=== PATIENT | male | born 1985 | race Caucasian/White ===

== ENCOUNTER 2020-10-18 18:26 | Inpatient (IN) | payer OTHER ==
--- NOTE | 2020-10-18 19:01 | RAD ---
Right ankle 2 views: 10/18/2020 COMPARISON: None HISTORY: Running, fall, ankle popped FINDINGS: There is a comminuted displaced multifocal distal right fibular/lateral malleolus fracture. There is a comminuted displaced obliquely oriented fracture of the distal right tibia involving the region of the posterior malleolus with intra-articular extension. Distal tibial fracture fragment is displaced laterally by 1.1 cm. No evidence for dislocation. IMPRESSION: Extensive fracture deformities of the distal tibia and fibula. Orthopedic consultation [facility].
[2020-10-18] MEDS ORDERED: Ondansetron PF 4 MG/2 ML Vial ONE (19:14)
[2020-10-18] MEDS ORDERED: Morphine 4 MG/ML VIAL ONE (19:14)
[2020-10-18 21:01] LABS: #Lymphocytes 0.9 thou/uL (1.20-3.40); #Monocytes 0.4 thou/uL (0.11-0.59); #Neutrophils 10.2 thou/uL (1.40-6.50); %Basophils 0.2 % (0.0-1.0); %Eosinophils 0.1 % (0.0-10.0); %Lymphocytes 7.5 % (21.0-51.0); %Monocytes 3.8 % (0.0-10.0); %Neutrophils 88.4 % (42.0-75.0); Hemoglobin 14.2 g/dL (14.0-18.0); Mean Corpuscular HGB CONC 33.6 g/dL (32.0-36.0); Mean Corpuscular Hemoglobin 31.4 pg (27.0-31.0); Mean Corpuscular Volume 93.5 fL (78.0-98.0); Mean Platelet Volume 8.1 fL (7.4-10.4); Platelet Count 171 thou/uL (130-400); RBC Distribution Width 12.1 % (11.5-14.5); Red Blood Cell (RBC) Count 4.53 mill/uL (4.70-6.10); White Blood Cell (WBC) Count 11.6 thou/uL (4.8-10.8)
[2020-10-18 21:10] LABS: INR-International Normal Ratio 1.1
[2020-10-18 21:23] LABS: ALT (SGPT) 40 U/L (8-55); AST (SGOT) 24 U/L (5-34); Albumin 4.5 g/dL (3.5-5.0); Alkaline Phosphatase 43 U/L (40-110); Anion Gap 15 mmol/L (10-20); BUN (Urea Nitrogen) 10 mg/dL (8.9-20.6); Bilirubin, Total 0.6 mg/dL (0.2-1.2); Calc. Creatinine Clearance 0 mL/min (70-130); Carbon Dioxide 25 mmol/L (22-29); Chloride 104 mmol/L (98-107); Estimated GFR-MDRD 90; Globulin 3.1 g/dL (2.4-3.5); Glucose 95 mg/dL (70-105); Potassium 4.4 mmol/L (3.5-5.1); Protein, Total 7.6 g/dL (6.0-8.3); Sodium 140 mmol/L (136-145)
--- NOTE | 2020-10-18 21:41 | RAD ---
RADIOGRAPH CHEST 1 VIEW: DATE: 10/18/2020 HISTORY: 35-year-old male for preoperative clearance FINDINGS: There are no airspace densities, pulmonary edema, pneumothorax, or cardiomegaly. The lateral costophr enic angles are sharp. IMPRESSION: No acute cardiopulmonary findings.
--- NOTE | 2020-10-18 22:35 | HP ---
This is Shayne Scherer PA-C dictating a report for Bharath Miller MD. REQUESTING PHYSICIAN: Theodore Barajas MD CONSULTATIONS: Orthopedics, Dr. Cullen. HISTORY OF PRESENT ILLNESS: The patient is a 35-year-old man, who was running in a field, chasing his son on a motorcycle when he stepped in a hole, felt a pop and had immediate pain and deformity to his right ankle. The patient was brought to the emergency department, where he underwent evaluation and examination and was noted to have distal tibia and fibular fractures at which time we were asked to evaluate the patient for admission and obtain Orthopedic consultation. The patient denied any loss of consciousness or syncopal episode surrounding his fall. He did not hit his head. ALLERGIES: NONE. CURRENT MEDICATIONS: None. PAST MEDICAL HISTORY: None. PAST SURGICAL HISTORY: Left shoulder surgery. SOCIAL HISTORY: The patient denies tobacco or drug use. He drinks occasionally once a week. 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 REVIEW OF SYSTEMS: A 10-point review of systems is negative as otherwise stated. PHYSICAL EXAMINATION: VITAL SIGNS: Blood pressure 122/70, heart rate 60, respirations 16, oxygen saturation 99% on room air, and temperature is 98.2. GENERAL: The patient is resting comfortably in bed. He is awake, alert, and oriented x3. Oh Coma Scale is 15. HEENT: Head is normocephalic and atraumatic. Eyes, extraocular motion intact. PERRLA bilaterally. Ears are atraumatic without discharge. Nose is atraumatic without discharge. Oropharynx is clear. NECK: Nontender. Trachea is midline with no JVD. CHEST: Clear to auscultation with good inspiratory and expiratory effort. HEART: Regular rate and rhythm. ABDOMEN: Soft, flat, nontender with active bowel sounds. PELVIS: Stable. EXTREMITIES: Neurovascularly intact x4. Right lower extremity is immobilized in a well-padded splint. BACK: Atraumatic and nontender. LABORATORY FINDINGS: White blood cell count 11.6, hemoglobin 14.2, hematocrit 42.4, platelets 171. Sodium 140, potassium 4.4, chloride 104, CO2 of 25, BUN 10, creatinine 0.94, glucose 95, INR 1.1. Radiographs, views of the right ankle showed an extensive fracture deformities of the distal tibia and fibula. AP chest x-ray shows no acute cardiopulmonary fracture. ASSESSMENT: 1. Status post ground level fall. 2. Right distal tibia and fibular fracture, closed. 3. Acute pain secondary to above. PLAN: Plan will be to admit the patient to the surgical floor. He will be made n.p.o. after midnight. We will do pain control, pulmonary toilet, gastritis, and mechanical VTE prophylaxis, and he will undergo operative intervention by Dr. Cullen tomorrow. We will have Physical Therapy work with him to crutch training and likely be able to discharge the patient home depending on his surgical time. The evaluation, examination, laboratory, and radiographic findings were discussed with Dr. Miller prior to this dictation. Job ID: [id number]
[2020-10-18] MEDS ORDERED: traMADol HCl 50 MG TAB PO PRN (22:51)
[2020-10-18] MEDS ORDERED: Dextrose 5% in Water 1,000 ML IV PRN (22:51)
[2020-10-18] MEDS ORDERED: Ondansetron PF 4 MG/2 ML Vial IVP PRN (22:51)
[2020-10-18] MEDS ORDERED: Morphine 2 MG/ML VIAL SLOW IVP PRN (22:51)
[2020-10-18] MEDS ORDERED: Promethazine HCl 25 MG/ML VIAL IM PRN (22:51)
[2020-10-18] MEDS ORDERED: Ondansetron ODT 4 MG TAB PO PRN (22:51)
[2020-10-18] MEDS ORDERED: Dextrose 50% Abboject 50 ML SYRINGE SLOW IVP PRN (22:51)
[2020-10-18] MEDS ORDERED: Famotidine 20 MG TAB PO SCH (23:15)
[2020-10-18] MEDS ORDERED: Ibuprofen 800 MG TAB PO SCH (23:15)
[2020-10-18] MEDS: Acetaminophen 500 MG TAB PO SCH (23:23)
[2020-10-18] MEDS: Cyclobenzaprine 10 MG TAB PO PRN (23:24)
[2020-10-18] MEDS: Sodium Chloride 0.9% 1,000 ML IV SCH (23:24)
[2020-10-19 00:47] VITALS: BMI 35.4
[2020-10-19] MEDS: traMADol HCl 50 MG TAB PO PRN ×2 (01:32→07:16)
[2020-10-19 03:49] LABS: SARS-CoV-2 MS2 Positive; SARS-CoV-2 N Gene Negative; SARS-CoV-2 S Gene Negative; SARS-CoV-2 by NAA Not Detected (NotDetected); SARS-CoV-2 orf1ab Negative
[2020-10-19] MEDS: Ibuprofen 800 MG TAB PO SCH ×2 (05:34→15:37)
[2020-10-19] MEDS: Acetaminophen 500 MG TAB PO SCH ×2 (05:34→13:35)
[2020-10-19] MEDS: Cyclobenzaprine 10 MG TAB PO PRN (05:34)
[2020-10-19 05:48] LABS: #Eosinphils 0.1 thou/uL (0.0-0.7); #Lymphocytes 1.8 thou/uL (1.20-3.40); #Monocytes 0.5 thou/uL (0.11-0.59); #Neutrophils 4.1 thou/uL (1.40-6.50); %Basophils 0.4 % (0.0-1.0); %Eosinophils 0.8 % (0.0-10.0); %Lymphocytes 28.1 % (21.0-51.0); %Monocytes 8.3 % (0.0-10.0); %Neutrophils 62.4 % (42.0-75.0); Hemoglobin 13.6 g/dL (14.0-18.0); Mean Corpuscular HGB CONC 33.8 g/dL (32.0-36.0); Mean Corpuscular Hemoglobin 31.5 pg (27.0-31.0); Mean Corpuscular Volume 93.1 fL (78.0-98.0); Mean Platelet Volume 7.6 fL (7.4-10.4); Platelet Count 180 thou/uL (130-400); RBC Distribution Width 12.1 % (11.5-14.5); White Blood Cell (WBC) Count 6.5 thou/uL (4.8-10.8)
[2020-10-19 06:08] LABS: Anion Gap 13 mmol/L (10-20); BUN (Urea Nitrogen) 11 mg/dL (8.9-20.6); Calc. Creatinine Clearance 194 mL/min (70-130); Calcium 8.8 mg/dL (7.8-10.44); Carbon Dioxide 26 mmol/L (22-29); Chloride 106 mmol/L (98-107); Estimated GFR-MDRD Greater than 90; Glucose 96 mg/dL (70-105); Sodium 141 mmol/L (136-145)
[2020-10-19] MEDS: Sodium Chloride 0.9% 1,000 ML IV SCH (08:31)
[2020-10-19] MEDS ORDERED: Famotidine 20 MG TAB PO SCH (09:00)
--- NOTE | 2020-10-19 09:07 | CON ---
DATE OF CONSULTATION: CHIEF COMPLAINT: Right ankle pain. HISTORY OF PRESENT ILLNESS: Mr. Lomeli is a 35-year-old male, who was running across a pasture yesterday. He rolled his ankle and fell. He had pain and popping. He was unable to bear weight. He had deformity of his ankle. He was taken to the emergency department. X-rays of this demonstrated a distal tibia fracture as well as a lateral malleolus fracture. He has an unstable fracture. He has been splinted. He has been admitted to the hospital. He is resting comfortably. He did sleep some last night. He has been hemodynamically stable. ALLERGIES: NONE. MEDICATIONS: None. PAST MEDICAL HISTORY: Negative. PAST SURGICAL HISTORY: Previous left shoulder labral surgery approximately three months ago. SOCIAL HISTORY: The patient denies tobacco, alcohol, or drug use. 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 REVIEW OF SYSTEMS: Positive for right ankle pain. Otherwise, negative 10-point review of systems. IMAGES: X-rays of the right ankle demonstrate a distal tibia fracture with displacement. It does appear to be extra-articular. There is approximately only 1-2 cm of bone distal to the fracture. He has a displaced comminuted distal fibular fracture also. PHYSICAL EXAMINATION: VITAL SIGNS: Temperature is 98.2, pulse is 65, respiratory rate 16, oxygen saturation 98%, blood pressure is 128/75. GENERAL: He is alert, sitting upright, in no apparent distress. RESPIRATORY: Breathing comfortably. ABDOMEN: Soft, nontender, and nondistended. MUSCULOSKELETAL: The patient's right lower extremity is splinted. He is able to gently flex and extend the toes. He has 2-second capillary refill. The splint was not removed. IMPRESSION: Right distal tibia fracture and fibular fracture. PLAN: The patient will need to go to the surgery today. We will plan for open reduction and internal fixation of the distal tibia and fibula. He will likely be able to go back home today. He will be nonweightbearing for 6-8 weeks. He will need to strictly elevate the leg. He will have pain control. He will have antibiotics on-call to the operating room. Risks have been reviewed with him and he wants to proceed. Job ID: [id number]
[2020-10-19] MEDS ORDERED: Dexamethasone 4 mg/ml Vial ONE (09:23)
[2020-10-19] MEDS ORDERED: Midazolam HCl 2 mg/2 ml Vial ONE (09:23)
[2020-10-19] MEDS ORDERED: Fentanyl 100 MCG/2 ML VIAL ONE (09:23)
[2020-10-19] MEDS ORDERED: Lidocaine 1% (PF) 30 ML VIAL ONE (09:23)
[2020-10-19] MEDS ORDERED: CEFAZOLIN 2 GM in Premix Bag 1 BAG IVPB SCH ×2 (10:00→16:00)
[2020-10-19] MEDS ORDERED: Promethazine HCl 25 MG/ML VIAL SLOW IVP PRN (10:52)
[2020-10-19] MEDS ORDERED: Promethazine HCl 25 MG/ML VIAL IM PRN (10:52)
[2020-10-19] MEDS ORDERED: Ondansetron HCl/PF 4 MG/2 ML Vial IVP PRN (10:52)
--- NOTE | 2020-10-19 12:53 | OP ---
DATE OF PROCEDURE: 10/19/2020 PROCEDURE PERFORMED: Open reduction and internal fixation of right distal tibia and fibular fracture. PREOPERATIVE DIAGNOSIS: Displaced fracture of right distal tibial plafond and fibular fracture. POSTOPERATIVE DIAGNOSIS: Displaced fracture of right distal tibial plafond and fibular fracture. COMPLICATIONS: None. ESTIMATED BLOOD LOSS: 100 mL. MARINE CONSULTANT: Iam Tabor PA-C The pediatric physician assistant surgeon was responsible for positioning the patient, preparing the injured extremity, applying the tourniquet, and assisting in preparation for surgery. The pediatric physician assistant was instrumental in reducing the injured limb by applying traction and reduction maneuvers as well as holding retractors and reduction tools. The pediatric physician assistant also was instrumental in assisting in exposure throughout the operation using appropriate retractors. The pediatric physician assistant participated in closure of the operative site as well as dressing application and splint application. IMPLANT: Synthes medial distal tibial plate with multiple locking and nonlocking screws and a one-third tubular plate with nonlocking screws were utilized. INDICATIONS: Mr. Lomeli is a 35-year-old male, who has fallen and fractured his right distal tibia and fibula. He has been indicated for open reduction and internal fixation to restore anatomic alignment and promote healing and prevent complications. Risks have been reviewed in detail. He has elected to proceed with the operation. DESCRIPTION OF PROCEDURE: Mr. Lomeli was identified in the preoperative holding area. His correct extremity was marked. He was carried to the operating room. He was positioned supine. General anesthesia was induced. A multidisciplinary time-out was performed. The right lower extremity was prepped and draped in sterile fashion. We began the procedure with a medial approach to the tibia. We dissected down through the subcutaneous tissues to the fascia. We exposed the underlying medial malleolus and medial tibial fracture lines. We irrigated and cleared soft tissue from the bony injury. We then pulled traction and reduced the bone. We applied a reduction clamp at this point holding the fracture well reduced. Next, we slid the 8-hole distal tibial medial plate along the medial cortex. This was positioned appropriately on the bone. We placed the screw proximally, which was a nonlocking screw followed by multiple locking distal screws. We took x-ray images in orthogonal planes. At this point, we continued to place the screws until we had rigid fixation. We took x-ray images again. We thoroughly irrigated these wounds and closed in layers. Next, we moved to the lateral aspect of the leg. We made incision over the distal fibula. We dissected down to the bony level. We cleared the bony fracture, which was comminuted and displaced. We reduced the fracture using reduction clamp. We then placed a lag screw across the fracture line itself. This was followed by placement of a 10-hole 1/3 tubular plate. Multiple screws were placed proximal and distal to the fracture. We spanned the long posterior fracture comminution. Again, we took x-ray images. We were happy with hardware placement and reduction. We thoroughly irrigated with copious lavage. We then closed in layers. A sterile dressing was applied. The patient was taken to the recovery room in good condition. Job ID: [id number]
--- NOTE | 2020-10-19 17:03 | RAD ---
2 VIEWS RIGHT ANKLE: Date: 10/19/2020 PROVIDED CLINICAL HISTORY: Open reduction and internal fixation. FINDINGS: Medial side plate and screw fixation of previously described distal tibial pilon fracture with result ant improved alignment. Lateral side plate and screw fixation with interfragmentary screw involving p reviously described distal fibular fracture. IMPRESSION: As above. POS: [facility]
[2020-10-19 17:29] VITALS: BP 116/70; TEMP 98.2
== END 2020-10-19 17:35 | disposition home or self-care (01) | DRG 494 ==
LOC: ERS 18:26 → SURG A 19:17
PROVIDERS: ADMIT Specialist; ATTEND Specialist
PROC: 0QSJ04Z Reposition Right Fibula with Internal Fixation Device, Open Approach (ICD-10-PCS; principal; 2020-10-19)
PROC: 0QSG04Z Reposition Right Tibia with Internal Fixation Device, Open Approach (ICD-10-PCS; 2020-10-19)
DX: S82.301A Unspecified fracture of lower end of right tibia, initial encounter for closed fracture (principal); S82.831A Other fracture of upper and lower end of right fibula, initial encounter for closed fracture; W22.8XXA Striking against or struck by other objects, initial encounter; Z20.828 Contact with and (suspected) exposure to other viral communicable diseases
CPT/HCPCS: 29515; 36415; 71045; 76000; 80048; 80053; 85025; 85610; 85730; 87635; 96374; 96375; C1713; G0390; J0690; J1100; J2001; J2250; J2270; J2405; J3010; U0003